=== PATIENT | female | born 1995 | race Caucasian/White ===

== ENCOUNTER 2018-01-19 21:31 | Emergency (ER) | payer MEDICAID ==
[~2018-01-19] VITALS: Ht 162.6 cm; Wt 68.0 kg
[2018-01-19 21:58] VITALS: BP_SYST 121
[2018-01-19 23:00] VITALS: BP_SYST 120
== END 2018-01-19 23:00 | disposition home or self-care (01) ==
LOC: SED 21:31
DX: J02.9 Acute pharyngitis, unspecified (principal); J06.9 Acute upper respiratory infection, unspecified
CPT/HCPCS: 99282

== ENCOUNTER 2023-09-29 11:13 | Emergency (ER) | payer MEDICAID ==
[~2023-09-29] VITALS: Ht 162.6 cm; Wt 79.4 kg
[~2023-09-29 11:13] MED LIST: CIPR500T5 PO; HYDR-3917 PO; IBUP-1971 PO; ONDA8TAB60 PO
[2023-09-29 11:19] VITALS: BP_SYST 127; PULSE 77; RESP 22; TEMP 98.3; O2SAT 97
[2023-09-29] MEDS ORDERED: KETOROLAC TROMETHAMINE 60 MG/2 ML VIAL IM ONE (11:45)
[2023-09-29 12:04] LABS: BILIRUBIN,URINE NEGATIVE (NEGATIVE); BLOOD, URINE NEGATIVE (NEGATIVE); CLARITY/URINE CLOUDY (CLEAR); GLUCOSE,URINE 1+ (NEGATIVE); KETONES,URINE 1+ (NEGATIVE); LEUKOCYTE ESTERASE ,URINE 1+ (NEGATIVE); NITRITE, URINE POSITIVE (NEGATIVE); PROTEIN URINE 3+ (NEGATIVE)
[2023-09-29 12:29] LABS: HCG,QUAL RESULT NEGATIVE (NEGATIVE)
[2023-09-29 12:34] LABS: UROBILINOGEN,URINE >=8 (0.2-1.0)
[2023-09-29 12:35] LABS: COLOR,URINE ORANGE (YELLOW)
[2023-09-29] MEDS ORDERED: NITR-85 PO (12:41)
[2023-09-29] MEDS ORDERED: IBUP-1969 PO (12:41)
[2023-09-29 12:43] LABS: BACTERIA,URINE MODERATE /HPF (None Seen); RBC,URINE 0-3 /HPF (0-3); WBC,URINE 0-3 /HPF (0-3)
[2023-09-29 12:53] VITALS: BP_SYST 142; PULSE 81; RESP 16; TEMP 97.6; O2SAT 100
== END 2023-09-29 12:52 | disposition home or self-care (01) ==
LOC: SED 11:13
DX: N39.0 Urinary tract infection, site not specified (principal); Z79.899 Other long term (current) drug therapy
CPT/HCPCS: 99283; 81001; 84703; 87086; 81025; 96372; J1885; 81000; 81015